=== PATIENT | female | born 1995 | race Caucasian/White ===

== ENCOUNTER 2022-10-11 17:53 | Emergency (ER) | payer BC ==
[2022-10-11 18:31] VITALS: RESP 18; TEMP 98.3
--- NOTE | 2022-10-11 19:52 | ED ---
Female Urogenital HPI - General Source: patient Mode of arrival: ambulatory Limitations: no limitations - History of Present Illness Last Menstrual Period: 08/30/22 <Bartolo Omalley - Last Filed: 10/11/22 19:47> <John Agudelo - Last Filed: 10/11/22 22:13> - General Chief complaint: Urogenital Stated complaint: Low Pelvic Pain Time Seen by Provider: 10/11/22 19:47 - History of Present Illness Initial comments: Patient is a 26-year-old female presenting with chief complaint of pelvic pain and spotting (Bartolo Omalley) - Related Data Allergies Allergy/AdvReac Type Severity Reaction Status Date / Time No Known Allergies Allergy Verified 10/11/22 18:31 Review of Systems ROS Other: All systems not noted in ROS Statement are negative. <Bartolo Omalley - Last Filed: 10/11/22 19:47> ROS Other: All systems not noted in ROS Statement are negative. <John Agudelo - Last Filed: 10/11/22 22:13> ROS Statement: Those systems with pertinent positive or pertinent negative responses have been documented in the HPI. Past Medical History Past Medical History: Asthma, Hypertension History of Any Multi-Drug Resistant Organisms: None Reported Past Surgical History: Orthopedic Surgery Past Psychological History: No Psychological Hx Reported Smoking Status: Never smoker Past Alcohol Use History: None Reported Past Drug Use History: None Reported <Bartolo Omalley - Last Filed: 10/11/22 19:47> General Exam Limitations: no limitations <Bartolo Omalley - Last Filed: 10/11/22 19:47> Course Vital Signs 10/11/22 18:28 Temperature 98.3 F Pulse Rate 77 Respiratory 18 Rate Blood Pressure 129/86 O2 Sat by Pulse 100 Oximetry Medical Decision Making - Lab Data Result diagrams: 10/11/22 20:53 10/11/22 20:53 <John Agudelo - Last Filed: 10/11/22 22:13> - Lab Data Lab Results 10/11/22 10/11/22 10/11/22 Range/Units 19:54 19:54 20:53 WBC 9.0 (3.8-10.6) k/uL RBC 4.97 (3.80-5.40) m/uL Hgb 14.9 (11.4-16.0) gm/dL Hct 43.8 (34.0-46.0) % MCV 88.2 (80.0-100.0) fL MCH 30.0 (25.0-35.0) pg MCHC 34.1 (31.0-37.0) g/dL RDW 12.7 (11.5-15.5) % Plt Count 119 L (150-450) k/uL MPV 9.6 Neutrophils % 49 % Lymphocytes % 42 % Monocytes % 5 % Eosinophils % 2 % Basophils % 0 % Neutrophils # 4.4 (1.3-7.7) k/uL Lymphocytes # 3.8 (1.0-4.8) k/uL Monocytes # 0.5 (0-1.0) k/uL Eosinophils # 0.2 (0-0.7) k/uL Basophils # 0.0 (0-0.2) k/uL Sodium (137-145) mmol/L Potassium (3.5-5.1) mmol/L Chloride (98-107) mmol/L Carbon Dioxide (22-30) mmol/L Anion Gap mmol/L BUN (7-17) mg/dL Creatinine (0.52-1.04) mg/dL Est GFR (CKD-EPI)AfAm (>60 ml/min/1.73 sqM) Est GFR (CKD-EPI)NonAf (>60 ml/min/1.73 sqM) Glucose (74-99) mg/dL Calcium (8.4-10.2) mg/dL Total Bilirubin (0.2-1.3) mg/dL AST (14-36) U/L ALT (4-34) U/L Alkaline Phosphatase (38-126) U/L Total Protein (6.3-8.2) g/dL Albumin (3.5-5.0) g/dL Urine Color Light Yellow Urine Appearance Cloudy H (Clear) Urine pH 5.5 (5.0-8.0) Ur Specific [place] 1.006 (1.001-1.035) Urine Protein Negative (Negative) Urine Glucose (UA) Negative (Negative) Urine Ketones 1+ H (Negative) Urine Blood Small H (Negative) Urine Nitrite Negative (Negative) Urine Bilirubin Negative (Negative) Urine Urobilinogen <2.0 (<2.0) mg/dL Ur Leukocyte Esterase Negative (Negative) Urine RBC 3 (0-5) /hpf Urine WBC 4 (0-5) /hpf Ur Squamous Epith Cells 5 H (0-4) /hpf Urine Bacteria Many H (None) /hpf Urine Mucus Rare H (None) /hpf Urine HCG, Qual Not Detected (Not Detectd) 10/11/22 Range/Units 20:53 WBC (3.8-10.6) k/uL RBC (3.80-5.40) m/uL Hgb (11.4-16.0) gm/dL Hct (34.0-46.0) % MCV (80.0-100.0) fL MCH (25.0-35.0) pg MCHC (31.0-37.0) g/dL RDW (11.5-15.5) % Plt Count (150-450) k/uL MPV Neutrophils % % Lymphocytes % % Monocytes % % Eosinophils % % Basophils % % Neutrophils # (1.3-7.7) k/uL Lymphocytes # (1.0-4.8) k/uL Monocytes # (0-1.0) k/uL Eosinophils # (0-0.7) k/uL Basophils # (0-0.2) k/uL Sodium 138 (137-145) mmol/L Potassium 5.1 (3.5-5.1) mmol/L Chloride 103 (98-107) mmol/L Carbon Dioxide 22 (22-30) mmol/L Anion Gap 13 mmol/L BUN 12 (7-17) mg/dL Creatinine 0.64 (0.52-1.04) mg/dL Est GFR (CKD-EPI)AfAm >90 (>60 ml/min/1.73 sqM) Est GFR (CKD-EPI)NonAf >90 (>60 ml/min/1.73 sqM) Glucose 73 L (74-99) mg/dL Calcium 9.3 (8.4-10.2) mg/dL Total Bilirubin 0.9 (0.2-1.3) mg/dL AST 33 (14-36) U/L ALT 33 (4-34) U/L Alkaline Phosphatase 105 (38-126) U/L Total Protein 8.3 H (6.3-8.2) g/dL Albumin 4.6 (3.5-5.0) g/dL Urine Color Urine Appearance (Clear) Urine pH (5.0-8.0) Ur Specific [place] (1.001-1.035) Urine Protein (Negative) Urine Glucose (UA) (Negative) Urine Ketones (Negative) Urine Blood (Negative) Urine Nitrite (Negative) Urine Bilirubin (Negative) Urine Urobilinogen (<2.0) mg/dL Ur Leukocyte Esterase (Negative) Urine RBC (0-5) /hpf Urine WBC (0-5) /hpf Ur Squamous Epith Cells (0-4) /hpf Urine Bacteria (None) /hpf Urine Mucus (None) /hpf Urine HCG, Qual (Not Detectd) Disposition <Bartolo Omalley - Last Filed: 10/11/22 19:47> Is patient prescribed a controlled substance at d/c from ED?: No <John Agudelo - Last Filed: 10/11/22 22:13> Clinical Impression: Pelvic pain Disposition: HOME SELF-CARE Condition: Good Instructions (If sedation given, give patient instructions): Pelvic Pain in Women (ED) Referrals: Nonstaff,Physician [Primary Care Provider] - 1-2 days Regi Navarro DO [Doctor of Osteopathic Medicine] - 1-2 days
[2022-10-11 20:20] LABS: Appearance,Urine Cloudy (Clear); Bacteria,Urine Many /hpf; Bilirubin,Urine Negative (Negative); Blood,Urine Small (Negative); Color,Urine Light Yellow; Glucose,Urine (UA) Negative (Negative); Ketones,Urine 1+ (Negative); Leukocyte Esterase,Urine Negative (Negative); Mucus,Urine Rare /hpf; Nitrite,Urine Negative (Negative); PH, Urine 5.5 (5.0-8.0); Protein,Urine Negative (Negative); RBC,Urine 3 /hpf (0-5); Specific Gravity,Urine 1.006 (1.001-1.035); Squamous Epithelial Cell,Urine 5 /hpf (0-4); Urobilinogen,Urine <2.0 mg/dL (<2.0); WBC,Urine 4 /hpf (0-5)
[2022-10-11 21:31] LABS: Basophils % (A) 0 %; Eosinophils # (A) 0.2 k/uL (0-0.7); Eosinophils % (A) 2 %; HCT 43.8 % (34.0-46.0); HGB 14.9 gm/dL (11.4-16.0); Lymphocytes # (A) 3.8 k/uL (1.0-4.8); Lymphocytes % (A) 42 %; MCHC 34.1 g/dL (31.0-37.0); MCV 88.2 fL (80.0-100.0); Mean Platelet Volume 9.6; Monocytes # (A) 0.5 k/uL (0-1.0); Monocytes % (A) 5 %; Neutrophils # (A) 4.4 k/uL (1.3-7.7); Neutrophils % (A) 49 %; Platelet Count 119 k/uL (150-450); RBC 4.97 m/uL (3.80-5.40); RDW 12.7 % (11.5-15.5)
[2022-10-11 21:50] LABS: ALT 33 U/L (4-34); African American GFR (CKD) >90 (>60 ml/min/1.73 sqM); Anion Gap 13 mmol/L; Blood Urea Nitrogen 12 mg/dL (7-17); Calcium 9.3 mg/dL (8.4-10.2); Carbon Dioxide 22 mmol/L (22-30); Chloride 103 mmol/L (98-107); Glucose 73 mg/dL (74-99); Non-African American GFR(CKD) >90 (>60 ml/min/1.73 sqM); Sodium 138 mmol/L (137-145); Total Bilirubin 0.9 mg/dL (0.2-1.3)
[2022-10-11 22:02] LABS: AST 33 U/L (14-36); Albumin 4.6 g/dL (3.5-5.0); Potassium 5.1 mmol/L (3.5-5.1); Total Protein 8.3 g/dL (6.3-8.2)
[2022-10-11 22:03] LABS: Alkaline Phosphatase 105 U/L (38-126)
--- NOTE | 2022-10-11 22:04 | US ---
EXAMINATION TYPE: US transvaginal DATE OF EXAM: 10/11/2022 COMPARISON: NONE CLINICAL INDICATION: Female, 26 years old with history of pelvic pain; pelvic pain x 1 month TECHNIQUE: Transvaginal (TV). Date of LMP: 08/30/22 EXAM MEASUREMENTS: Uterus: 5.4 x 3.3 x 2.6 cm Endometrial Stripe: 0.5 cm Right Ovary: Not seen cm Left Ovary: 1.8 x 1.7 x 1.6 cm 1. Uterus: Anteverted wnl 2. Endometrium: wnl 3. Right Ovary: Obscured by overlying bowel gas 4. Left Ovary: wnl Spectral, color and waveform doppler imaging shows good arterial and venous flow within the left ov marielle; there is no evidence for ovarian torsion. 5. Bilateral Adnexa: wnl 6. Posterior cul-de-sac: wnl IMPRESSION: 1. No evidence for acute abdominal process. 2. Endometrium within normal limits for thickness. 3. Appropriate arterial and venous spectral waveforms to the left ovary. Waveforms 4. Nonvisualization of the right ovary
[2022-10-11 22:43] VITALS: BP 129/82; PULSE 89
== END 2022-10-11 22:37 | disposition home or self-care (01) ==
LOC: EC 17:53
DX: R10.2 Pelvic and perineal pain (principal); J45.909 Unspecified asthma, uncomplicated; I10 Essential (primary) hypertension
CPT/HCPCS: 36415; 76830; 80053; 81001; 81025; 85025; 93976; 99284